=== PATIENT | male | born 1975 | race Caucasian/White ===

== ENCOUNTER → 2016-09-01 | Outpatient (CLI) | payer BC ==
--- NOTE | 2016-09-01 13:50 | Diagnostic Imaging Report ---
INDICATION: Right testicular pain x1 week. FINDINGS: Right testicle measures 4.4 x 2.3 x 3.3 cm. Left testicle measures 3.9 x 2.8 x 2.5 cm. There is normal blood flow to both testes. Epididymides appear normal bilaterally. There are bilateral hydroceles present. No evidence of varicoceles with color Doppler imaging. IMPRESSION: Bilateral hydroceles, otherwise normal bilateral testicular ultrasound. Dictated by: Dictated on workstation # [id number]
== END ==
LOC: RAD 12:16
PROVIDERS: ATTEND Nurse Practitioner
DX: N50.811 Right testicular pain (principal); N43.3 Hydrocele, unspecified
CPT/HCPCS: 76870

== ENCOUNTER 2019-07-27 07:18 | Emergency (ER) | payer BC ==
[~2019-07-27] VITALS: Ht 182 cm; Wt 91.9 kg
[2019-07-27] MEDS ORDERED: fentaNYL INJECTION 100 MCG/2 ML AMP IVP STA (07:34)
[2019-07-27] MEDS ORDERED: KETOROLAC 30 MG/ML VIAL IVP STA (07:34)
[2019-07-27] MEDS ORDERED: LACTATED RINGERS 1,000 ML IV ONE (07:34)
[2019-07-27 07:43] LABS: BASOPHILS % (AUTO) 1 % (0-10); EOSINOPHILS % (AUTO) 1 % (0-10); HEMATOCRIT 47 % (40-54); HEMOGLOBIN 16.6 G/DL (13.3-17.7); LYMPHOCYTES # (AUTO) 1.1 X 10^3 (1.0-4.0); LYMPHOCYTES % (AUTO) 19 % (12-44); MEAN CORPUSCULAR HEMOGLOBIN 30 PG (25-34); MEAN CORPUSCULAR HGB CONC 35 G/DL (32-36); MEAN CORPUSCULAR VOLUME 85 FL (80-99); MEAN PLATELET VOLUME 10.1 FL (7.4-10.4); MONOCYTES # (AUTO) 0.5 X 10^3 (0.0-1.0); MONOCYTES % (AUTO) 9 % (0-12); NEUTROPHILS # (AUTO) 4.1 X 10^3 (1.8-7.8); NEUTROPHILS % (AUTO) 70 % (42-75); PLATELET COUNT 245 10^3/uL (130-400); RED CELL DISTRIBUTION WIDTH 12.5 % (10.0-14.5); WHITE BLOOD COUNT 5.8 10^3/uL (4.3-11.0)
[2019-07-27] MEDS ORDERED: ONDANSETRON 4 MG/2 ML (SDV) Z0FRAN IVP ONE (07:45)
--- NOTE | 2019-07-27 07:57 | ED GU-Male ---
General Chief Complaint: Back Problems Stated Complaint: BACK PAIN Nursing Triage Note: PT TO ROOM 10 PT CO OF L FLANK PAIN THIS AM 0600 SUDDEN ONSET, N/V AND SWEATING Source: patient Exam Limitations: no limitations (PARADISE MONTEJO MEDICAL STUDENT) History of Present Illness Date Seen by Provider: Jul 27, 2019 Time Seen by Provider: 07:30 Initial Comments Pt is a 43 yo M presenting to the ED complaining of sharp, stabbing L flank pain that woke him from sleep this morning at 0600. He went to the bathroom to urinate, did not notice any blood and denies dysuria. He has associated nausea, emesisx1, and diaphoresis. He states the pain is currently a 6/10, but was worse before arrival. He has not taken anything yet for pain. He endorses drinking mostly diet Dr. Castañeda for hydration. Works as a kennel worker. Denies history of abdominal surgeries or kidney stones. Timing/Duration: just prior to arrival, this morning, constant Severity/Quality: severe, sharp, stabbing Location: left flank Radiation: groin Activities at Onset: sleep Prior Genitourinary Problems: none Sexual [place] History: single partner Modifying Factors: Improves With Movement Associated Symptoms: diaphoresis, nausea/vomiting (PARADISE MONTEJO STUDENT) Timing/Duration: this morning Location: left flank Sexual [place] History: single partner Modifying Factors: Improves With Movement (this may make it worse but denies any exacerbating or relieving factors) Associated Symptoms: nausea/vomiting (AQUILINO POON MD) Allergies and Home Medications Allergies Coded Allergies: No Known Drug Allergies (Unverified , 07/27/19) Patient Home Medication List Home Medication List Reviewed: Yes (PARADISE MONTEJO) Home Medication List Reviewed: Yes (AQUILINO POON MD) Review of Systems Review of Systems Constitutional: No chills; diaphoresis EENTM: no symptoms reported Respiratory: no symptoms reported Cardiovascular: no symptoms reported Gastrointestinal: No diarrhea; nausea, vomiting Genitourinary: denies dysuria; flank pain; denies hematuria Musculoskeletal: No back pain, No muscle cramps Skin: no symptoms reported Psychiatric/Neurological: No Symptoms Reported Endocrine: No Symptoms Reported Hematologic/Lymphatic: No Symptoms Reported (PARADISE MONTEJO) Constitutional: No fever Respiratory: no symptoms reported Cardiovascular: no symptoms reported Musculoskeletal: No back pain, No muscle pain, No neck pain (AQUILINO POON MD) Past Xwnlbxd-Rxjqha-Kcxioc Hx Past Med/Social Hx: Reviewed Nursing Past Med/Soc Hx (PARADISE MONTEJO STUDENT) Past Med/Social Hx: Reviewed Nursing Past Med/Soc Hx (AQUILINO POON MD) Patient Social History Alcohol Use: Denies Use Recreational Drug Use: No Smoking Status: Never a Smoker Recent Foreign Travel: No Contact w/Someone Who Travel: No Recent Infectious Disease Expo: No Recent Hopitalizations: No Physical Abuse: No Sexual Abuse: No (PARADISE MONTEJO STUDENT) Seasonal Allergies Seasonal Allergies: No (PARADISE MONTEJO STUDENT) Past Medical History Surgeries: Yes (L KNEE SURG X3) Respiratory: No Cardiac: Yes Hypertension Neurological: No Genitourinary: No Gastrointestinal: No Musculoskeletal: No Endocrine: Yes Diabetes, Non-Insulin dep HEENT: No Cancer: No Psychosocial: No Blood Disorders: No (PARADISE MONTEJO) Family Medical History Reviewed Nursing Family Hx (AQUILINO POON MD) Physical Exam Vital Signs Vital Signs - First Documented 07/27/19 07:25 Temp 36.0 Pulse 88 Resp 18 B/P (MAP) 115/78 (90) Pulse Ox 96 (AQUILINO POON MD) Vital Signs Capillary Refill : Less Than 3 Seconds (PARADISE MONTEJO STUDENT) Height, Weight, BMI Height: '" Weight: lbs. oz. kg; 27.00 BMI Method: General Appearance: WD/WN, mild distress HEENT: PERRL/EOMI, pharynx normal Neck: non-tender, full range of motion, supple, normal inspection Cardiovascular: normal peripheral pulses, regular rate, rhythm, no edema, no murmur Respiratory: chest non-tender, lungs clear, normal breath sounds, no respiratory distress Gastrointestinal: normal bowel sounds, non tender, soft, tenderness (L flank) Back: no vertebral tenderness, CVA tenderness (L) Extremities: normal range of motion, non-tender, normal inspection Neurologic/Psychiatric: alert, normal mood/affect Skin: normal color, diaphoresis Lymphatic: no adenopathy (PARADISE MONTEJO MEDICAL STUDENT) General Appearance: WD/WN, mild distress HEENT: PERRL/EOMI, pharynx normal Cardiovascular: regular rate, rhythm, no murmur Respiratory: lungs clear, normal breath sounds, no respiratory distress Gastrointestinal: normal bowel sounds, non tender, soft Back: no vertebral tenderness, CVA tenderness (L) (filed) Extremities: normal range of motion, non-tender, normal inspection Neurologic/Psychiatric: alert, normal mood/affect Skin: normal color, diaphoresis (AQUILINO POON MD) Progress/Results/Core Measures Suspected Sepsis Recent Fever Within 48 Hours: No Infection Criteria Present: None New/Unexplained Altered Menta: No Sepsis Screen: No Definite Risk SIRS Temperature: Pulse: 88 Respiratory Rate: 18 Laboratory Tests 07/27/19 07:30: White Blood Count 5.8 Blood Pressure 115 /78 Mean: 90 Laboratory Tests 07/27/19 07:30: Platelet Count 245 (PARADISE MONTEJO MEDICAL STUDENT) Results/Orders Lab Results Laboratory Tests Test 07/27/19 07:30 07/27/19 08:03 Range/Units White Blood Count 5.8 4.3-11.0 10^3/uL Red Blood Count 5.54 4.35-5.85 10^6/uL Hemoglobin 16.6 13.3-17.7 G/DL Hematocrit 47 40-54 % Mean Corpuscular Volume 85 80-99 FL Mean Corpuscular Hemoglobin 30 25-34 PG Mean Corpuscular Hemoglobin Concent 35 32-36 G/DL Red Cell Distribution Width 12.5 10.0-14.5 % Platelet Count 245 130-400 10^3/uL Mean Platelet Volume 10.1 7.4-10.4 FL Neutrophils (%) (Auto) 70 42-75 % Lymphocytes (%) (Auto) 19 12-44 % Monocytes (%) (Auto) 9 0-12 % Eosinophils (%) (Auto) 1 0-10 % Basophils (%) (Auto) 1 0-10 % Neutrophils # (Auto) 4.1 1.8-7.8 X 10^3 Lymphocytes # (Auto) 1.1 1.0-4.0 X 10^3 Monocytes # (Auto) 0.5 0.0-1.0 X 10^3 Eosinophils # (Auto) 0.0 0.0-0.3 10^3/uL Basophils # (Auto) 0.0 0.0-0.1 10^3/uL Sodium Level 138 135-145 MMOL/L Potassium Level 4.3 3.6-5.0 MMOL/L Chloride Level 103 98-107 MMOL/L Carbon Dioxide Level 24 21-32 MMOL/L Anion Gap 11 5-14 MMOL/L Blood Urea Nitrogen 25 H 7-18 MG/DL Creatinine 1.12 0.60-1.30 MG/DL Estimat Glomerular Filtration Rate > 60 BUN/Creatinine Ratio 22 Glucose Level 187 H 70-105 MG/DL Calcium Level 9.2 8.5-10.1 MG/DL Corrected Calcium 8.9 8.5-10.1 MG/DL Total Bilirubin 1.1 H 0.1-1.0 MG/DL Aspartate Amino Transf (AST/SGOT) 23 5-34 U/L Alanine Aminotransferase (ALT/SGPT) 35 0-55 U/L Alkaline Phosphatase 63 40-136 U/L C-Reactive Protein High Sensitivity 0.08 0.00-0.50 MG/DL Total Protein 6.9 6.4-8.2 GM/DL Albumin 4.4 3.2-4.5 GM/DL Urine Color YELLOW Urine Clarity CLEAR Urine pH 5.0 5-9 Urine Specific [place] >=1.030 1.016-1.022 Urine Protein 1+ H NEGATIVE Urine Glucose (UA) NEGATIVE NEGATIVE Urine Ketones NEGATIVE NEGATIVE Urine Nitrite NEGATIVE NEGATIVE Urine Bilirubin 1+ H NEGATIVE Urine Urobilinogen 0.2 < = 1.0 MG/DL Urine Leukocyte Esterase NEGATIVE NEGATIVE Urine RBC (Auto) 3+ H NEGATIVE Urine RBC 50-100 H /HPF Urine WBC 5-10 H /HPF Urine Squamous Epithelial Cells 2-5 /HPF Urine Crystals NONE /LPF Urine Amorphous Sediment FEW JAMIE URATES H /LPF Urine Bacteria FEW H /HPF Urine Casts NONE /LPF Urine Mucus SMALL H /LPF Urine Culture Indicated YES (AQUILINO POON MD) My Orders Orders - AQUILINO POON MD Cbc With Automated Diff (07/27/19 07:34) Comprehensive Metabolic Panel (07/27/19 07:34) Hs C Reactive Protein (07/27/19 07:34) Ua Culture If Indicated (07/27/19 07:34) Ed Iv/Invasive Line Start (07/27/19 07:34) Lactated Ringers (Lr 1000 Ml Iv Solution (07/27/19 07:34) Fentanyl Injection (Sublimaze Injection (07/27/19 07:34) Ketorolac Injection (Toradol Injection) (07/27/19 07:34) Ondansetron Injection (Zofran Injectio (07/27/19 07:45) Ct Abd/Pelvis Wo(Kidney Stone) (07/27/19 07:34) Urine Culture (07/27/19 08:03) (AQUILINO POON MD) Medications Given in ED Current Medications Medications Dose Ordered Sig/Birdie Route Start Time Stop Time Status Last Admin Dose Admin Lactated Ringer's 1,000 ml @ 0 mls/hr Q0M ONCE IV 07/27/19 07:34 07/27/19 07:37 DC 07/27/19 07:47 1,000 MLS/HR Ondansetron HCl 4 mg ONCE ONCE IVP 07/27/19 07:45 07/27/19 07:46 DC 07/27/19 07:46 4 MG (AQUILINO POON MD) Vital Signs/I&O 07/27/19 07:25 Temp 36.0 Pulse 88 Resp 18 B/P (MAP) 115/78 (90) Pulse Ox 96 (AQUILINO POON MD) Vital Signs/I&O Capillary Refill : Less Than 3 Seconds (PARADISE MONTEJO MEDICAL STUDENT) Blood Pressure Mean: 90 Progress Note : Progress Note Seen and evaluated the patient and agree with above except as indicated. I have directed the plan of care. Patient is here with left flank pain that radiates down towards the groin. Onset this morning with urination. States pain quite significant. I did make him nauseated and he broke out in a cold sweat with the pain. It has let up a little but but is still present. Evaluation as above. Plan for IV, labs, UA, LR 1 L bolus, Toradol 30 mg IV, fentanyl [address] abdomen and pelvis kidney stone protocol. Monitor patient. 0845: Pain resolved. CT does not show stone. He did have blood in in the urine and there is question of mild hydroureter on the left. It would appear that he may have had a stone that is passed. He does have a few white cells and bacteria in the urine. We will go ahead and initiate outpatient treatment for urinary tract infection. Since he has blood in his urine he will need to have that rechecked. I did discuss with him to follow-up with his doctor for this. I will send a copy of the chart over to Dr. Swain. Discharged home with return precautions. Patient verbalize understanding of instructions and agreement with plan. (AQUILINO POON MD) Diagnostic Imaging Diagonstic Imaging: CT Plain Films/CT/US/NM/MRI: abdomen, pelvis Comments [facility] [place], [place] NAME: NIVIA PAULINO [facility] REC#: [id number] PT STATUS: REG ER : 1975 PHYSICIAN: AQUILINO POON MD ADMIT DATE: 07/27/19/ER Draft Date of Exam:07/27/19 CT ABD/PELVIS WO(KIDNEY STONE) PROCEDURE: CT urinary tract, rule out kidney stone. TECHNIQUE: Multiple contiguous axial images were obtained through the abdomen and pelvis without the use of intravenous contrast. Auto Exposure Controls were utilized during the CT exam to meet ALARA standards for radiation dose reduction. INDICATION: Back pain. COMPARISON: None. FINDINGS: Lung bases are clear. Liver, gallbladder, pancreas, spleen, adrenals, kidneys, collecting systems, bladder and appendix are negative. Moderate amount stool throughout the colon. No evidence of bowel obstruction. No free intraperitoneal air or fluid. No lymphadenopathy. Chronic L5 pars defect on the right. No acute osseous findings. IMPRESSION: No acute CT findings in the abdomen and pelvis on this noncontrast exam. Dictated on workstation # [id number] Dict: 07/27/19826 Trans: 07/27/19 0832 [facility] [id number] Interpreted by: NIGHAT FAY MD Electronically signed by: Reviewed: Reviewed by Me (AQUILINO POON MD) Departure Impression Primary Impression: Kidney stone on left side Additional Impression: Hematuria Qualified Codes: R31.9 - Hematuria, unspecified Disposition: 01 HOME, SELF-CARE Condition: Improved Departure-Patient Inst. Decision time for Depature: 08:54 (AQUILINO POON MD) Referrals: EBER SWAIN DO (PCP/Family) Primary Care Physician Patient Instructions: Kidney Stones (DC), Blood in the Urine (Hematuria) in Adults Add. Discharge Instructions: All discharge instructions reviewed with patient and/or family. Voiced understanding. You may have had a kidney stone on the left side given the clinical symptoms and findings but it is not seen on CT currently. You may still have a little bit of pain after a stone passes. You may use Tylenol/acetaminophen 1000 mg every 6-8 hours as needed for pain. You may take ibuprofen 600 mg every 8 hours as needed for pain. Drink plenty of fluids. Call Dr. Swain's office for repeat appointment for recheck of your urine to ensure that the blood in your urine has cleared. Take medications as directed. Return for worse pain, fever, vomiting, weakness, breathing problems or other concerns as needed. Scripts Cephalexin (Cephalexin) 500 Mg Tablet 500 MG PO BID, #10 TAB 0 Refills Prov: AQUILINO POON MD 07/27/19 Copy Copies To 1: EBER SWAIN [employer]ER MEDICAL STUDENT Jul 27, 2019 07:57 AQUILINO POON MD Jul 27, 2019 08:51
[2019-07-27 08:00] LABS: ALANINE AMINOTRANSFERASE 35 U/L (0-55); ALBUMIN 4.4 GM/DL (3.2-4.5); ALKALINE PHOSPHATASE 63 U/L (40-136); BILIRUBIN,TOTAL 1.1 MG/DL (0.1-1.0); BUN/CREATININE RATIO 22; CALCIUM 9.2 MG/DL (8.5-10.1); CARBON DIOXIDE 24 MMOL/L (21-32); CHLORIDE 103 MMOL/L (98-107); CREATININE SERUM 1.12 MG/DL (0.60-1.30); GFR ESTIMATED > 60; GLUCOSE 187 MG/DL (70-105); POTASSIUM 4.3 MMOL/L (3.6-5.0); SODIUM 138 MMOL/L (135-145); TOTAL PROTEIN 6.9 GM/DL (6.4-8.2)
[2019-07-27 08:11] LABS: CLARITY,URINE CLEAR; COLOR,URINE YELLOW; GLUCOSE, URINE (UA) NEGATIVE (NEGATIVE); KETONES,URINE NEGATIVE (NEGATIVE); LEUKOCYTE ESTERASE ,URINE NEGATIVE (NEGATIVE); NITRITE,URINE NEGATIVE (NEGATIVE); PROTEIN,URINE 1+ (NEGATIVE)
[2019-07-27 08:27] LABS: BACTERIA,URINE FEW /HPF; BILIRUBIN,URINE 1+ (NEGATIVE); RBC,URINE 50-100 /HPF
[2019-07-27 08:28] LABS: AMORPHOUS SEDIMENT,UR FEW AMOR URATES /LPF
--- NOTE | 2019-07-27 08:32 | Diagnostic Imaging Report ---
PROCEDURE: CT urinary tract, rule out kidney stone. TECHNIQUE: Multiple contiguous axial images were obtained through the abdomen and pelvis without the use of intravenous contrast. Auto Exposure Controls were utilized during the CT exam to meet ALARA standards for radiation dose reduction. INDICATION: Back pain. COMPARISON: None. FINDINGS: Lung bases are clear. Liver, gallbladder, pancreas, spleen, adrenals, kidneys, collecting systems, bladder and appendix are negative. Moderate amount stool throughout the colon. No evidence of bowel obstruction. No free intraperitoneal air or fluid. No lymphadenopathy. Chronic L5 pars defect on the right. No acute osseous findings. IMPRESSION: No acute CT findings in the abdomen and pelvis on this noncontrast exam. Dictated by: Dictated on workstation # [id number]
[2019-07-27] MEDS ORDERED: CEPH500T PO (08:56)
[2019-07-27 09:19] VITALS: BP 110/70
== END 2019-07-27 09:19 | disposition home or self-care (01) ==
LOC: EDUNIT# 07:18 → ER 07:20
DX: N20.0 Calculus of kidney (principal); E11.9 Type 2 diabetes mellitus without complications
CPT/HCPCS: 36415; 74176; 80053; 81000; 85025; 86141; 87088

== ENCOUNTER 2020-07-13 13:07 | Outpatient (CLI) | payer BC ==
[~2020-07-13] VITALS: Ht 182.8 cm; Wt 90.9 kg
[~2020-07-13 13:07] MED LIST: CEPH500T PO
[2020-07-13] MEDS ORDERED: BAMLANIVIMAB (NON FORM) 700 MG in NS (IVPB) 100 ML IV ONE (13:15)
[2020-07-13] MEDS ORDERED: EPINEPHrine INJECTION 1 MG/ML AMP IM PRN (13:15)
[2020-07-13] MEDS ORDERED: diphenhydrAMINE 50 MG/ML INJ (BENADRYL) IV PRN (13:15)
[2020-07-13 13:30] VITALS: BP 113/68
[2020-07-13 13:50] VITALS: BP 120/70
== END 2020-07-13 14:50 | disposition home or self-care (01) ==
LOC: INFUSION 13:07
PROVIDERS: ATTEND Nurse Practitioner Family
DX: U07.1 COVID-19 (principal); E11.65 Type 2 diabetes mellitus with hyperglycemia; I10 Essential (primary) hypertension

== ENCOUNTER 2021-09-22 05:36 | Outpatient (CLI) | payer BC ==
[~2021-09-22] VITALS: Ht 182.9 cm; Wt 89.8 kg
[2021-09-22] MEDS ORDERED: CETI10CA PO (12:43)
[2021-09-22] MEDS ORDERED: CELE200C PO (12:43)
[2021-09-22] MEDS ORDERED: SIMV10TA26 PO (12:43)
[2021-09-22] MEDS ORDERED: LISI5TAB20 PO (12:43)
[2021-09-22] MEDS ORDERED: SEMA1PEN3 SQ (12:43)
[2021-09-22] MEDS ORDERED: EMPA1TAB9 PO (12:43)
== END 2021-09-22 13:31 | disposition home or self-care (01) ==
LOC: PREOP 05:36
PROVIDERS: ATTEND Internal Medicine
DX: Z01.818 Encounter for other preprocedural examination (principal)

== ENCOUNTER 2021-09-30 09:04 | Day surgery (SDC) | payer BC ==
[2021-09-30] VITALS (7 sets, daily range): BP systolic 89–109; BP diastolic 54–89
[~2021-09-30] VITALS: Ht 182.9 cm; Wt 89.8 kg
[~2021-09-30 09:04] MED LIST changes: +CELE200C PO; +CETI10CA PO; +EMPA1TAB9 PO; +LISI5TAB20 PO; +SEMA1PEN3 SQ; +SIMV10TA26 PO
[2021-09-30] MEDS ORDERED: LACTATED RINGERS 1,000 ML IV ONE (09:35)
[2021-09-30] MEDS ORDERED: LACTATED RINGERS 1,000 ML IV STA (09:39)
[2021-09-30] MEDS ORDERED: PROPOFOL INJECTION 50 ML IV ONE (10:17)
--- NOTE | 2021-09-30 10:36 | Pre-Op Note & Conscious Sedat ---
Pre-Operative Progress Note H&P Reviewed The H&P was reviewed, patient examined and no changes noted. Date H&P Reviewed: Sep 30, 2021 Time H&P Reviewed: 10:10 Conscious Sedation Pre-Proced ASA Score 2 For ASA 3 and 4: Consider anesthesia and medical clearance. Also, for patients with a history of failed moderate sedation consider anesthesia. Airway Lungs Heart ASA score ASA 1: a normal healthy patient ASA 2: a patient with a mild systemic disease (mid diabetes, controlled hypertension, obesity ASA 3: a patient with a severe systemic disease that limits activity (angina, COPD, prior Myocardial infarction) ASA 4: a patient with an incapacitating disease that is a constant threat to life (CHF, renal failure) ASA 5: a moribund patient not expected to survive 24 hrs. (ruptured aneurysm) ASA 6: a declared brain- patient whose organs are being harvested. For emergent operations, add the letter E after the classification Mallampati Classification Grade 2 Sedation Plan Analgesia, Amnesia, Plan communicated to team members, Discussed options with patient/fam, Discussed risks with patient/fam The patient is an appropriate candidate to undergo the planned procedure, sedation, and anesthesia. The patient immediately re-assessed prior to indication. MABLE HORVATH MD Sep 30, 2021 10:36
[2021-09-30] MEDS ORDERED: proPOfol 200 MG/20 ML (DIPRIVAN) VIAL IV ONE (10:46)
--- NOTE | 2021-09-30 15:00 | OPERATIVE REPORT ---
DATE OF SERVICE: COLONOSCOPY SUMMARY INDICATION FOR PROCEDURE: Screening colon. DESCRIPTION OF PROCEDURE: The patient was placed in the left lateral decubitus position. Prior to undergoing colonoscopy, digital rectal evaluation was performed. Anal sphincter tone was normal and the perianal reflexes intact. Prostate was unremarkable to digital inspection. No abnormalities were noted on digital inspection of anal canal or distal rectal vault. The colonoscope was inserted into the rectum and under direct visualization advanced to cecum. The cecum was identified by identification of ileocecal valve, cecal strap and appendiceal orifice. Photographic documentation was obtained. Quality of prep was good. FINDINGS: There was no evidence for internal or external hemorrhoids and the rectum, sigmoid colon, descending colon, splenic flexure, transverse colon, hepatic flexure and ascending colon were unremarkable. There was a 6 mm periappendiceal adenomatous appearing polyp with uniform mucosal features. It was photographed and biopsied and ablated with no subsequent blood loss. ASSESSMENT: Periappendiceal adenomatous appearing polyp was removed via hot forceps. There was no subsequent blood loss. This is otherwise normal colonoscopy to the cecum under good prep conditions. As long as there is no surprise on histopathology report, would advocate consideration for repeat screening colonoscopy in 5 years. I thank you for the referral of this pleasant gentleman. Job ID: [id number] DocumentID: [id number] Dictated Date: 09/30/2021 10:57:56 Fire Sprinkler Apparatus Inspector Date: 09/30/2021 14:59:49 Dictated By: MABLE HORVATH MD
--- NOTE | 2021-10-03 10:44 | HISTORY AND PHYSICAL ---
DATE OF SERVICE: 09/30/2021 COLONOSCOPY HISTORY AND PHYSICAL HISTORY: The patient is a 45-year-old white male referred by Dr. Swain for his first screening colonoscopy. He seemed to be of average risk as he is not aware of any family history for colon cancer. His mother does have a history of diverticulitis and multiple bouts. He denies bright red blood per rectum, melena. Does have some alteration in bowel habit from loose to firm, but case ever since he has been on metformin that he takes for type 2 diabetes. PAST MEDICAL HISTORY: Significant for type 2 diabetes, hypertension, and hyperlipidemia with no known history of coronary artery disease. He also has a history of seasonal. ALLERGIES: He reports no known drug allergies. MEDICATIONS ON ADMISSION: Include Ozempic 1 mg weekly, lisinopril 5 mg daily, simvastatin 10 mg daily, Celebrex 200 mg p.r.n., Synjardy 10/999 I believe 2 daily, and Zyrtec daily. PAST SURGICAL HISTORY: He has had 2 ACL reconstructions, another arthroscopic procedure with wisdom tooth extraction. None of these have been resent. FAMILY HISTORY: Other than his mother is living at age 65 with diverticulitis. Father is living at the age 68 with diabetes and hypertension with no known history for GI tract malignancy. REVIEW OF SYSTEMS: Negative. SOCIAL HISTORY: No past smoking history or drinking history. 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 REVIEW OF SYSTEMS: CONSTITUTIONAL: Denies night sweats, chills, fever, change in weight. Previous COVID infection of these completely recovered from. GASTROINTESTINAL: As noted in the HPI. PULMONARY: noted. PULMONARY: Denies cough, wheezing or shortness of breath. CARDIOVASCULAR: No chest pain, orthopnea, PND, pedal edema or syncope. PHYSICAL EXAMINATION: GENERAL: Reveals a fit appearing white male in no acute distress. VITAL SIGNS: Weight 192 pounds, blood pressure 110/76. HEENT: Unremarkable. Sclerae nonicteric. CHEST: Clear to auscultation. CARDIOVASCULAR: Reveals a regular rate and rhythm without murmur, S3 or S4. ABDOMEN: Soft, supple without mass, organomegaly or tenderness. No bruits are noted. RECTAL: Evaluation was deferred at the time of colonoscopy. EXTREMITIES: Reveal no cyanosis, clubbing or edema. ASSESSMENT AND PLAN: The patient is being set up for screening colonoscopy on 09/30/2021. Prep instructions with Suprep kit were given and questions were answered. The patient is to hold his Synjardy in the morning of his procedure with no other change in medication. I thank you for the referral of this pleasant gentleman. Job ID: [id number] DocumentID: [id number] Dictated Date: 09/05/2021 15:38:45 Gas Plant Specialist Date: 09/05/2021 16:01:26 Dictated By: MABLE HORVATH MD <Dictated by MABLE HORVATH MD> <Electronically signed by MABLE HORVATH MD> 09/08/21 0751 MTDD
== END 2021-09-30 12:08 | disposition home or self-care (01) ==
LOC: ENDO 09:04
PROVIDERS: ATTEND Internal Medicine
DX: Z12.11 Encounter for screening for malignant neoplasm of colon (principal); D12.1 Benign neoplasm of appendix
CPT/HCPCS: 82947; 88305